=== PATIENT | male | born 1935 | race Caucasian/White ===

== ENCOUNTER 2019-06-18 18:46 | Inpatient (IN) | payer OTHER, MEDICAID ==
[~2019-06-18] VITALS: Ht 152.4 cm; Wt 52.2 kg
--- NOTE | 2019-06-18 18:50 | NUR ---
PATIENT TO ER #8
[2019-06-18 18:58] VITALS: BP_SYST 145
--- NOTE | 2019-06-18 19:01 | NUR ---
Pt presents to ED via BLS from Dr. Arenas's clinic for nausea and vomiting x 3 days. Pt non-verbal, pt responds to verbal stimuli. Unable to gather medical history. No other injuries/complaints per pt/noted. Will continue to monitor.
--- NOTE | 2019-06-18 19:45 | NUR ---
Family member at bedside states pt had aneurysm surgery in April.
[2019-06-18] MEDS ORDERED: NACL 0.9% 1,000 ML IV ONE (19:54)
--- NOTE | 2019-06-18 20:10 | NUR ---
ER Dr. Rob at bedside examining patient.
--- NOTE | 2019-06-18 20:30 | NUR ---
IV NS Bolus initiated. Pt tolerated well. No adverse reactions noted.
[2019-06-18] MEDS ORDERED: OMEP40CA33 PO (20:40)
[2019-06-18] MEDS ORDERED: ASPI-1153 PO (20:40)
[2019-06-18] MEDS ORDERED: CLOP75TA32 PO (20:40)
[2019-06-18] MEDS ORDERED: FLUO-119 PO (20:40)
[2019-06-18] MEDS ORDERED: ALBU2.5V7 INH (20:40)
--- NOTE | 2019-06-18 20:45 | NUR ---
Pt taken to radiology via gurney in stable condition
[2019-06-18 21:04] LABS: BASOPHILS # (AUTO) 0.1 K/uL (0.0-0.2); BASOPHILS % (AUTO) 1.8 % (0.0-2.0); EOSINOPHILS % (AUTO) 0.5 % (0.0-4.0); HEMATOCRIT 34.5 % (36-54); HEMOGLOBIN 11.3 g/dL (14.0-18.0); LYMPHOCYTES # (AUTO) 0.8 K/uL (1.0-5.5); LYMPHOCYTES % (AUTO) 13.5 % (20.5-51.5); MEAN CORPUSCULAR HEMOGLOBIN 28 pg (27-31); MEAN CORPUSCULAR HGB CONC 33 % (32-36); MEAN CORPUSCULAR VOLUME 85 fL (79.0-98.0); MONOCYTES # (AUTO) 0.4 K/uL (0.0-1.0); NEUTROPHILS # (AUTO) 4.6 K/uL (1.8-7.7); NEUTROPHILS % (AUTO) 78.2 % (40.0-70.0); PLATELET COUNT (AUTO) 233 K/uL (130-430); RED BLOOD CELL COUNT(AUTO) 4.05 MIL/uL (4.2-6.2); RED CELL DISTRIBUTION WIDTH 14.8 % (9.0-15.0); WHITE BLOOD COUNT (AUTO) 5.9 K/uL (4.8-10.8)
[2019-06-18 21:40] LABS: ANION GAP 5 (5-15); CALCIUM 8.3 mg/dL (8.4-11.0); CHLORIDE 102 mmol/L (98-107); GLUCOSE 103 mg/dL (70-99); POTASSIUM 3.9 mmol/L (3.5-5.1); SODIUM SERUM 135 mmol/L (136-145); UREA NITROGEN, BLOOD 18 mg/dL (8-21)
[2019-06-18 21:41] LABS: INR 1.2 (0.80-1.20); PROTHROMBIN TIME 12.1 SECS (9.5-12.5)
--- NOTE | 2019-06-18 21:43 | NUR ---
Spoke with pt's daughter at bedside. Daughter requesting CT results. Dr. Rob notified.
[2019-06-18 21:45] LABS: ALANINE AMINOTRANSFERASE 24 U/L (12-78); ALBUMIN 2.3 g/dL (3.4-4.8); AMYLASE 68 U/L (0-100); ASPARTATE AMINOTRANSFERASE 35 U/L (10-37); LIPASE 225 U/L (73-393); TOTAL BILIRUBIN 0.8 mg/dL (0.0-1.0)
--- NOTE | 2019-06-18 21:50 | NUR ---
ER Dr. Rob at bedside updating patient.
--- NOTE | 2019-06-18 22:08 | NUR ---
#16 FR Paz catheter with use of sterile technique. No return of urine noted. Bedside drainage bag placed below level of bladder. Pt tolerated procedure well. Patient arrived with paz in place, changed due to standard of practice prior to admission. Patient unable to toilet self.
--- NOTE | 2019-06-18 22:23 | NUR ---
Patient will be admitted to care of [facility]. Admitted to Telemetry unit. Room number pending. Complete and up to date summary report printed. SBAR report to be given at bedside with opportunity for questions.
--- NOTE | 2019-06-18 23:03 | NUR ---
. Pt daughter, Jeaneth, unable to stay at bedside. Per Jeaneth, OK to call cell phone at any time to answer questions regarding pt.
--- NOTE | 2019-06-18 23:39 | NUR ---
ADMIT NOTE Received pt from ER to the floor with a diagnosis of s/p aneurysm sx, ALOC, encephalopathy, vomiting. Admission process initiated. patient oriented to pain management, safety and call light-pt is confused.
[2019-06-18 23:47] LABS: BILIRUBIN,URINE NEGATIVE (NEGATIVE); BLOOD, URINE 3+ (NEGATIVE); CLARITY/URINE CLEAR (CLEAR); COLOR,URINE YELLOW (YELLOW); GLUCOSE,URINE NEGATIVE (NEGATIVE); KETONES,URINE NEGATIVE (NEGATIVE); LEUKOCYTE ESTERASE ,URINE 2+ (NEGATIVE); NITRITE, URINE POSITIVE (NEGATIVE); PROTEIN URINE 1+ (NEGATIVE); UROBILINOGEN,URINE 0.2 (0.2-1.0)
[2019-06-18 23:53] LABS: BACTERIA,URINE MODERATE /HPF (None Seen); WBC,URINE 20-50 /HPF (0-3)
[2019-06-19] VITALS: BP_SYST 145
[2019-06-19 00:01] VITALS: BP_SYST 134
--- NOTE | 2019-06-19 00:30 | NUR ---
INITIAL NOTES: PT IS ALERT, CONFUSED. NO SIGN OF PAIN. NO DISTRESS, NOT VOMITING, IV LOCK TO LEFT WRIST GAUGE 20-INTACT AND PATENT. PT HAS ECCHYMOSIS TO HIS CHEST AND BRUISE TO RIGHT FORE ARM. PT HAS SCAR TO RIGHT HEAD AND BULGING TO RIGHT HEAD DUE TO TRAINING SYSTEMS OFFICER SHUNT. CALL AND SPOKE TO DAUGHTER TYSON. NEEDS ATTENDED. SAFETY PRECAUTION ON. LOW BED AND ALARM, SIDE RAILS UP. WILL MONITOR.
[2019-06-19] MEDS: D5/0.45 NS 1,000 ML IV SCH ×2 (00:35→21:48)
--- NOTE | 2019-06-19 02:00 | NUR ---
pt is still awake, not distress, no sob. stable. safety in place, abed alarm on. side rails up. low bed position and lock.
--- NOTE | 2019-06-19 02:05 | NUR ---
CONSULTATION PAGED/CALLED Reason for Consultation: ALOC S/P ANEURSYM SX Person Who was Notified: SHAWNA Consulting Physician: RAFAELA Electric Stove Mechanic Specialty: Ordering Physician: EDMUNDO
--- NOTE | 2019-06-19 04:00 | NUR ---
sleeping, comfortable. no sob, ot distress, stable. safety precaution in place.
--- NOTE | 2019-06-19 06:00 | NUR ---
sleeping, comfortable. no sob, not distress, ivf infusing well. stable. safety precaution in place. will monitor.
[2019-06-19 06:42] LABS: BASOPHILS # (AUTO) 0.1 K/uL (0.0-0.2); BASOPHILS % (AUTO) 1.5 % (0.0-2.0); EOSINOPHILS # (AUTO) 0.1 K/uL (0.0-0.4); EOSINOPHILS % (AUTO) 2.3 % (0.0-4.0); HEMATOCRIT 28.8 % (36-54); HEMOGLOBIN 9.6 g/dL (14.0-18.0); LYMPHOCYTES # (AUTO) 1.3 K/uL (1.0-5.5); LYMPHOCYTES % (AUTO) 32.5 % (20.5-51.5); MEAN CORPUSCULAR HEMOGLOBIN 28 pg (27-31); MEAN CORPUSCULAR HGB CONC 33 % (32-36); MEAN CORPUSCULAR VOLUME 85 fL (79.0-98.0); MONOCYTES # (AUTO) 0.7 K/uL (0.0-1.0); MONOCYTES % (AUTO) 16.1 % (1.7-9.3); NEUTROPHILS % (AUTO) 47.6 % (40.0-70.0); PLATELET COUNT (AUTO) 211 K/uL (130-430); RED BLOOD CELL COUNT(AUTO) 3.39 MIL/uL (4.2-6.2); RED CELL DISTRIBUTION WIDTH 14.6 % (9.0-15.0); WHITE BLOOD COUNT (AUTO) 4.1 K/uL (4.8-10.8)
--- NOTE | 2019-06-19 07:18 | NUR ---
closing: pt is sleeping, comfortable. no sob, not distress,no pain. ivf infusing well. stable.paz catheter draining by gravity. safety precaution in place. low bed position, side rails up and alarm on. bedside report given to am rn.
[2019-06-19 07:20] LABS: ALANINE AMINOTRANSFERASE 27 U/L (12-78); ALBUMIN 2.2 g/dL (3.4-4.8); ANION GAP 5 (5-15); ASPARTATE AMINOTRANSFERASE 43 U/L (10-37); CALCIUM 8.2 mg/dL (8.4-11.0); CHLORIDE 105 mmol/L (98-107); CREATININE 0.81 mg/dL (0.55-1.30); GLUCOSE 93 mg/dL (70-99); POTASSIUM 3.9 mmol/L (3.5-5.1); SODIUM SERUM 142 mmol/L (136-145); THYROID STIMULATING HORMONE 5.28 uIu/mL (0.36-3.74); TOTAL BILIRUBIN 0.7 mg/dL (0.0-1.0); UREA NITROGEN, BLOOD 14 mg/dL (8-21)
[2019-06-19 08:00] VITALS: BP_SYST 150
[2019-06-19 11:31] LABS: CHOLESTEROL 138 mg/dL (<200); HDL CHOLESTEROL 29 mg/dL (>45); LDL CHOLESTEROL 82 mg/dL (<100); TRIGLYCERIDES 101 mg/dL (30-150)
[2019-06-19 12:18] VITALS: BP_SYST 114
[2019-06-19 16:15] VITALS: BP_SYST 115
--- NOTE | 2019-06-19 19:29 | NUR ---
Patient currently in bed resting with no acute distress noted. Patient is alert but very confused and disoriented, family at bedside. Patient has no reports of pain or discomfort at this time. Call light and bedside table within reach, bed in locked and low position with alarm set for patient safety. Report given and care endorsed to ANGELA Feliciano.
[2019-06-19 20:00] VITALS: BP_SYST 119
[2019-06-19] MEDS: LEVOFLOXACIN 500 MG/D5W 100 ML IV SCH (20:00)
--- NOTE | 2019-06-19 21:21 | NUR ---
CONSULTATION PAGED/CALLED Reason for Consultation: UTI Person Who was Notified:MIHCEAL Consulting Physician: GERRY Lidding Machine Operator Specialty: ID Ordering Physician:EDMUNDO
--- NOTE | 2019-06-19 21:21 | NUR ---
Dr. Holland called for consult. Awaiting return call.
--- NOTE | 2019-06-19 22:23 | NUR ---
Patient in bed. No acute distress noted/ Will continue to monitor.
[2019-06-20 00:09] VITALS: BP_SYST 131
[2019-06-20] MEDS ORDERED: LEVOFLOXACIN 500 MG/D5W 100 ML IV ONE (00:40)
--- NOTE | 2019-06-20 05:37 | NUR ---
Current assessment unchanged. Turned repositioned q2. Will continue to monitor.
--- NOTE | 2019-06-20 07:20 | NUR ---
RECEIVED PATIENT IN BED STILL ASLEEP. AWAKE X 1. BUT NON VERBAL AND CONFUSED. LUNGS BILATERALLY CLEAR. ABDOMEN SOFT AND NON DISTENDED. HAS IV ACCESS ON THE LEFT WRIST #20 WITH D5 1/2NS AT 50CC/HR INFUSING ON WELL. BED LOW POSITION, ALARMED AND LOCKED. CALL LIGHTS WITHIN REACH. HAS GARCÍA CATHETER DRAINING CLEAR YELLOW URINE. WILL CONTINUE TO MONITOR PATIENTS STATUS. VITALS SIGNS STABLE. AND AFEBRILE. NO SKIN BREAKDOWN NOTED.
[2019-06-20 07:46] LABS: BASOPHILS % (AUTO) 0.4 % (0.0-2.0); EOSINOPHILS # (AUTO) 0.1 K/uL (0.0-0.4); EOSINOPHILS % (AUTO) 2.8 % (0.0-4.0); HEMATOCRIT 28.7 % (36-54); HEMOGLOBIN 9.5 g/dL (14.0-18.0); LYMPHOCYTES # (AUTO) 1.1 K/uL (1.0-5.5); LYMPHOCYTES % (AUTO) 24.4 % (20.5-51.5); MEAN CORPUSCULAR HEMOGLOBIN 28 pg (27-31); MEAN CORPUSCULAR HGB CONC 33 % (32-36); MEAN CORPUSCULAR VOLUME 85 fL (79.0-98.0); MONOCYTES # (AUTO) 0.7 K/uL (0.0-1.0); MONOCYTES % (AUTO) 15.8 % (1.7-9.3); NEUTROPHILS # (AUTO) 2.6 K/uL (1.8-7.7); NEUTROPHILS % (AUTO) 56.6 % (40.0-70.0); PLATELET COUNT (AUTO) 203 K/uL (130-430); RED BLOOD CELL COUNT(AUTO) 3.39 MIL/uL (4.2-6.2); RED CELL DISTRIBUTION WIDTH 14.6 % (9.0-15.0); WHITE BLOOD COUNT (AUTO) 4.7 K/uL (4.8-10.8)
[2019-06-20 08:02] LABS: ANION GAP 4 (5-15); CALCIUM 8.4 mg/dL (8.4-11.0); CHLORIDE 102 mmol/L (98-107); GLUCOSE 91 mg/dL (70-99); POTASSIUM 4.3 mmol/L (3.5-5.1); SODIUM SERUM 137 mmol/L (136-145); UREA NITROGEN, BLOOD 13 mg/dL (8-21)
[2019-06-20 08:45] VITALS: BP_SYST 146
--- NOTE | 2019-06-20 10:00 | NUR ---
NO PO MEDS DUE
--- NOTE | 2019-06-20 12:00 | NUR ---
PATIENT STABLE HOB ELEVATED. GOMEZ HERNANDEZ FEEDING THE PATIENT.
[2019-06-20 12:16] VITALS: BP_SYST 134
--- NOTE | 2019-06-20 14:00 | NUR ---
PATIENT STABLE. NOT RESTLESS NOR COMBATIVE NOTED. NO PAIN NOR SOB NOTED. RESTING COMFORTABLY. BOTH EYES CLOSED.
--- NOTE | 2019-06-20 16:00 | NUR ---
TURN TO SIDES. REPOSITIONED HOB ELEVATED. ROXANNA CARE DONE. PATIENT IS FEEDER.
[2019-06-20 16:10] VITALS: BP_SYST 130
[2019-06-20] MEDS: D5/0.45 NS 1,000 ML IV SCH (16:18)
--- NOTE | 2019-06-20 18:22 | NUR ---
CLOSING NOTES. PATIENT AWAKE X 1. NON VERBAL AND CONFUSED. LUNGS BILATERALLY CLEAR. ABDOMEN SOFT AND NON DISTENDED. HAS IV ACCESS ON LEFT WRIST #20 WITH IV FLUIDS OF D51/2NS AT 50CC/HR INFUSING ON WELL. BED IN LOW POSITION, ALARMED AND LOCKED. ORDINARY SEAMAN AT THE BEDSIDE. NO SKIN BREAKDOWN NOTED. HAS GARCÍA CATHETER IN PLACED WITH ADEQUATE OUTPUT AND DOCUMENTED. CLEAR YELLOW URINE. NOTED. WILL ENDORSED TO INCOMING NITE NURSE.
--- NOTE | 2019-06-20 19:37 | NUR ---
endorsed to incoming nurse Jodie MILLER
[2019-06-20 20:00] VITALS: BP_SYST 148
[2019-06-20] MEDS: LEVOFLOXACIN 500 MG/D5W 100 ML IV SCH (21:14)
--- NOTE | 2019-06-20 23:21 | NUR ---
PATIENT IN BED. TURNED REPOSITIONED Q2. NO ACUTE DISTRESS NOTED. WILL CONTINUE TO MONITOR.
[2019-06-21 01:09] VITALS: BP_SYST 123
[2019-06-21] MEDS: D5/0.45 NS 1,000 ML IV SCH (04:42)
--- NOTE | 2019-06-21 06:53 | NUR ---
Nutrition Update Mynor Scale 12 noted. Pt admitted for Encephalopathy, Vomiting, ALOC Diet: Pureed BMI: 22.5 kg/m2 RD to follow per nutrition care standards.
--- NOTE | 2019-06-21 07:45 | NUR ---
INITIAL ROUNDS PATIENT IS AWAKE, SITTING IN BED. NON-VERBAL. ABLE TO FEED SELF. NO SIGN OF PAIN OR SHORTNESS OF BREATH. IV FLUIDS RUNNING AT 50 ML/HR. SAFETY PRECAUTIONS PLACED. CALL LIGHT WITHIN REACH. BED ALARM ON. WILL MONITOR.
[2019-06-21 08:00] VITALS: BP_SYST 126
--- NOTE | 2019-06-21 09:00 | NUR ---
Notes- Pt able to talk and speak Vietnamese only. Denies any pain or discomfort. bed alarm on. will continue to monitor.
--- NOTE | 2019-06-21 11:30 | NUR ---
Up with physical therapy at this time.
[2019-06-21 12:37] VITALS: BP_SYST 112
--- NOTE | 2019-06-21 13:33 | NUR ---
Resting at this time. No distress noted. IVF infusing well.
--- NOTE | 2019-06-21 13:34 | NUR ---
Dietitian Recommendations *Recommend continuing pureed diet per MD. ONS Ensure Enlive TID comes standard w/ the diet and provides additional 1050 kcal and 60gm protein daily. Continue 1:1 assist during meals. Please see Nutritional Assessment for details. SARIAH CONDE
--- NOTE | 2019-06-21 15:11 | NUR ---
Notes- Family at bedside and update plan of care.
[2019-06-21 16:40] VITALS: BP_SYST 122
--- NOTE | 2019-06-21 18:04 | NUR ---
MD ROUNDS Dr. Arenas at bedside and talk to family at bedside.
[2019-06-21] MEDS ORDERED: ALBUTEROL SULFATE 0.083% 2.5 MG/3 ML VIAL.NEB INH PRN (18:15)
--- NOTE | 2019-06-21 18:50 | NUR ---
CLOSING NOTES Patient awake at bedside, relative feeding patient. IVF infusing well. No distress noted. Afebrile. Will endorse.
[2019-06-21 19:00] VITALS: BP_SYST 122
--- NOTE | 2019-06-21 19:11 | NUR ---
OPENING NOTES Patient is resting, no signs of acute respiratory distress observed. Verbally answered to name. IVF running, dressings c/d/i. Baca catheter in place, draining by gravity, no kinks or loops noted. Call light within reach, unable to verbalize or demonstrate usage, will do rounding, bed alarm on, bed at lowest position. Will continue to monitor.
[2019-06-21] MEDS: LEVOFLOXACIN 500 MG/D5W 100 ML IV SCH (20:08)
--- NOTE | 2019-06-21 21:13 | NUR ---
Patient is resting, eyes open. playing with sheets. No signs of distress observed. Will continue to monitor.
--- NOTE | 2019-06-22 00:30 | NUR ---
Patient is resting, eyes closed. No signs of distress observed. Baca catheter draining by gravity. Will continue to monitor.
[2019-06-22 01:00] VITALS: BP_SYST 125
--- NOTE | 2019-06-22 04:15 | NUR ---
Patient is resting, no signs of acute respiratory distress observed. Will continue to monitor.
[2019-06-22] MEDS: D5/0.45 NS 1,000 ML IV SCH (06:05)
--- NOTE | 2019-06-22 06:59 | NUR ---
CLOSING NOTES Patient is resting, no signs of acute respiratory distress observed. IVF running, dressings c/d/i. Baca catheter in place, draining by gravity, no kinks or loops noted. Call light within reach, unable to verbalize or demonstrate usage, rounds performed, bed alarm on, bed at lowest position. All needs met throughout shift. will endorse care to oncoming shift.
--- NOTE | 2019-06-22 08:00 | NUR ---
Twelve hour chart check. Received report from night team. Patient able to position self, however, mostly unable to care for himself. Will monitor and assist with adl's/safety. Chaitanya Lyman RN
[2019-06-22 09:29] VITALS: BP_SYST 86
[2019-06-22 09:30] VITALS: BP_SYST 85
[2019-06-22] MEDS: FLUoxetine HCL 20 MG CAPSULE (PROzac) PO SCH (11:08)
[2019-06-22] MEDS: CLOPIDOGREL BISULFATE 75 MG TABLET PO SCH (11:08)
[2019-06-22] MEDS: ASPIRIN 81 MG TABLET(ECOTRIN) PO SCH (11:08)
[2019-06-22] MEDS: PANTOPRAZOLE SODIUM 40 MG TAB PO SCH (11:09)
[2019-06-22 11:11] VITALS: BP_SYST 123
--- NOTE | 2019-06-22 13:55 | NUR ---
SS NOTES/HOSPICE: [facility] came to see patient, but daughter was not around. JELLY FILTER TENDER phoned daughter who states she spoke with a bilingual inside sales representative from [facility] and has decided to use them for pt's hospice needs. JELLY FILTER TENDER will remain available when needed.
[2019-06-22 15:17] VITALS: BP_SYST 129
--- NOTE | 2019-06-22 19:33 | NUR ---
OPENING NOTES Patient is resting, no signs of acute respiratory distress observed. IVF running, dressings c/d/i. Patient is resting comfortably playing with gown. Was endorsed that [facility] was not able to see Dr. Arenas and requests that the DNR/ POLST be signed by Dr. Arenas to have a smooth process. Baca catheter in tact, draining by gravity, no kinks, no loops, clear yellow urine. Patient unable to use call light, call light within reach, rounds to be performed. Was endorsed that patient spits and was confused in the morning. Will continue to monitor.
--- NOTE | 2019-06-22 19:56 | NUR ---
Handoff with night team RN, Maryuri. Chaitanya Lyman RN
[2019-06-22 20:00] VITALS: BP_SYST 140
[2019-06-22] MEDS: LEVOFLOXACIN 500 MG/D5W 100 ML IV SCH (20:38)
--- NOTE | 2019-06-22 23:11 | NUR ---
Incontinence care provided, bowel movement. Patient resists when turning patient and does not obey commands when trying to explain that care is trying to be provided. Patient is now clean, dry and turned. No signs of distress observed. Will continue to monitor.
--- NOTE | 2019-06-23 01:11 | NUR ---
Patient does not keep hospital gown on, and does not want the blankets to cover shoulders. Patient resists when trying to provide hospital gown. Will let patient rest and will continue to monitor. No distress observed.
[2019-06-23 01:33] VITALS: BP_SYST 123
[2019-06-23] MEDS: D5/0.45 NS 1,000 ML IV SCH (02:19)
--- NOTE | 2019-06-23 03:56 | NUR ---
Patient is asleep, eyes closed. No signs of distress observed at this time. Will continue to monitor.
--- NOTE | 2019-06-23 04:49 | NUR ---
Patient is awake, playing with gown. No signs of distress at this time. Will continue to monitor.
--- NOTE | 2019-06-23 07:05 | NUR ---
CLOSING NOTES Patient is resting, no signs of acute respiratory distress observed. IVF running, dressings c/d/i. Patient is resting comfortably playing with gown. Baca catheter in tact, draining by gravity, no kinks, no loops, clear yellow urine. Patient unable to use call light, call light within reach, rounds to be performed. Will endorse that [facility] was not able to see Dr. Arenas yesterday and requests that the DNR/ POLST be signed by Dr. Arenas to have a smooth process. All needs met throughout shift. Will endorse care to oncoming shift.
[2019-06-23 08:02] VITALS: BP_SYST 169
[2019-06-23] MEDS: PANTOPRAZOLE SODIUM 40 MG TAB PO SCH (09:00)
[2019-06-23] MEDS: FLUoxetine HCL 20 MG CAPSULE (PROzac) PO SCH (10:36)
[2019-06-23] MEDS: CLOPIDOGREL BISULFATE 75 MG TABLET PO SCH (10:36)
[2019-06-23] MEDS: ASPIRIN 81 MG TABLET(ECOTRIN) PO SCH (10:36)
--- NOTE | 2019-06-23 11:15 | NUR ---
PHYSICAL THERAPY CO-SIGN The Physical Therapy Progress Notes documented by Production Superintendent have been reviewed. Reviewed/Co-Signed by: Puma Massey, PT Documentation Done by: EMI FULLER PTA Addendum: 06/23/19 at 1117 by Puma Massey PT Amended: Links added.
--- NOTE | 2019-06-23 11:16 | NUR ---
PHYSICAL THERAPY CO-SIGN The Physical Therapy Progress Notes documented by Sales Representative Consultant have been reviewed. Reviewed/Co-Signed by: Puma Massey, PT Documentation Done by: EMI FULLER PTA Addendum: 06/23/19 at 1117 by Puma Massey PT Amended: Links added.
[2019-06-23 11:22] VITALS: BP_SYST 115
[2019-06-23 13:09] VITALS: BP_SYST 91
--- NOTE | 2019-06-23 14:59 | NUR ---
SS NOTES/DISCHARGE CLAY TRANSPORTER: Verified drop off address and presence of someone at home when patient arrives with Jeaneth vang. Pt is scheduled to be picked up via non-medical gurney through [facility] ([facility] transport @ [phone]) between 4-430PM, reservation# [phone]. [facility] notified.
--- NOTE | 2019-06-23 17:21 | NUR ---
Intact 20 gauge intravenous catheter removal from patient left wrist. Patient accompanied by two person ambulance crew. Identification bracelet removal. Telemetry box given to microfilm clerk. Patient in clean, dry linen. Baca catheter remains indwelling. Patient sent with all paperwork, POLST (original) for hospice team, and current medication list. Caregiver has been notified next medication in the morning. Chaitanya Lyman RN
== END 2019-06-23 17:20 | disposition hospice, home (50) | DRG 689 ==
LOC: SED 18:46 → STU 18:50
PROVIDERS: ADMIT Internal Medicine; ATTEND Internal Medicine
DX: N39.0 Urinary tract infection, site not specified (principal); G93.41 Metabolic encephalopathy; J45.909 Unspecified asthma, uncomplicated; R51 Headache; I10 Essential (primary) hypertension; Z86.79 Personal history of other diseases of the circulatory system; Z79.899 Other long term (current) drug therapy; Z79.82 Long term (current) use of aspirin
CPT/HCPCS: 36415; 70450-TC; 80048; 80053; 80061; 81000-TC; 82150-TC; 83690-TC; 84443-TC; 85025; 85610-TC; 87081; 87086; 93005; 96360; 97110-GP; 97112-GP; 97530-GP; 99285; G0378; J1956; J7030